=== PATIENT | male | born 1960 | race Caucasian/White ===

== ENCOUNTER 2025-02-23 15:50 | Outpatient (REF) | payer MEDICAID, SELFPAY ==
[2025-02-23 14:36] LABS: HCT 42.5 % (40.0-50.0); HGB 14.3 g/dL (13.5-17.5); MCH 33.5 pg (27.0-33.0); MCHC 33.6 % (32.0-36.0); MCV 100 fL (80-95); MPV 8.9 fL (8.0-11.0); Platelet Count 418 10^3/uL (130-400); RBC 4.27 10^6/uL (4.36-5.78); RDW 13.8 % (11.8-14.1); RDW-SD 50.9 fL; WBC 7.37 10^3/uL (4.4-10.8)
[2025-02-23 15:36] LABS: ALT 29 U/L (16-63); AST 29 U/L (15-37); Albumin 4.0 g/dL (3.4-5.0); Alkaline Phosphatase 106 U/L (46-116); Anion Gap 8.3 mmol/L (3-11); BUN 11 mg/dL (7-18); Bilirubin, Total 0.5 mg/dL (0.2-1.0); CO2 29.7 mmol/L (21.0-32.0); Calcium 9.3 mg/dL (8.5-10.1); Chloride 98 mmol/L (98-107); Estimated GFR 95.97 (mL/min/1.73m2); Glucose 110 mg/dL (74-106); Potassium 4.2 mmol/L (3.5-5.1); Sodium 136 mmol/L (136-145); TSH 1.80 uIU/mL (0.36-3.74); Total Protein 7.9 g/dL (6.4-8.2); Vitamin D 25 Total 57 ng/mL (30-100)
[2025-02-23 15:41] LABS: Folate > 20.0 ng/mL (8.6-20.0)
== END 2025-02-23 15:51 | disposition home or self-care (01) ==
LOC: NCHCN 15:50
PROVIDERS: Visit Provider Family Medicine
DX: R53.82 Chronic fatigue, unspecified (principal)
CPT/HCPCS: 80053; 82306; 85027; 82746; 84439; 84443

== ENCOUNTER 2025-04-06 15:06 | Outpatient (REF) | payer MEDICAID, SELFPAY ==
[2025-04-06 21:54] LABS: COMMENT (LAB VIEW ONLY) 56.57 mg/dL; Microalb ug/mg Crea 10.8 ug/mg Cr
== END 2025-04-06 15:07 | disposition home or self-care (01) ==
LOC: NCHCN 15:06
PROVIDERS: Visit Provider Family Medicine
DX: I10 Essential (primary) hypertension (principal)
CPT/HCPCS: 82043; 82570